=== PATIENT | male | born 1960 | race Caucasian/White ===

== ENCOUNTER 2017-05-15 05:52 | Emergency (ER) | payer OTHER ==
[2017-05-15] MEDS ORDERED: Lidocaine 2% 10 ML* VIAL INJ ONE ×2 (06:16→07:06)
[2017-05-15] MEDS ORDERED: Lidocaine 2% PF * 5 ML VIAL ONE (06:16)
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
[2017-05-15 07:06] VITALS: BP 135/92
== END 2017-05-15 07:05 | disposition home or self-care (01) ==
LOC: ED 05:52
DX: S61.411A Laceration without foreign body of right hand, initial encounter (principal); W26.9XXA Contact with unspecified sharp object(s), initial encounter; Y93.9 Activity, unspecified; Y92.9 Unspecified place or not applicable; Y99.8 Other external cause status; Z87.891 Personal history of nicotine dependence
CPT/HCPCS: 12002; 99282; J2001

== ENCOUNTER 2019-10-27 13:56 | Emergency (ER) | payer OTHER ==
[2019-10-27 14:31] VITALS: BP 148/82
[2019-10-27] MEDS ORDERED: Rabies Immune Globulin/PF 1ML* 1 ML/300 UNITS VIAL IM ONE (15:07)
[2019-10-27] MEDS ORDERED: Rabies VIRUS VACCINE (RabAvert)* 2.5 UNITS VIAL IM ONE (15:07)
--- NOTE | 2019-10-27 15:32 | UC ---
UC General HPI - HPI Summary HPI Summary: 59-year-old male comes in with a chief complaint of need for rabies immunization after exposure to a rabid raccoon. Yesterday morning while in his driveway at his home he was attacked by a raccoon which bit his right posterior pack leg and sock. No evidence of any skin wound or break in the skin. Patient reports is up-to-date with his tetanus. Patient feels well. - History of Current Complaint Chief Complaint: UCBiteInjury Stated Complaint: RABIES EXPOSURE Time Seen by Provider: 10/27/19 15:24 Pain Intensity: 2 - Allergy/Home Medications Allergies/Adverse Reactions: Allergies Allergy/AdvReac Type Severity Reaction Status Date / Time mesalamine Allergy Unknown Verified 10/27/19 14:32 Reaction Details Sulfa (Sulfonamide Allergy Muscle Ache Verified 10/27/19 14:32 Antibiotics) PMH/Surg Hx/FS Hx/Imm Hx Previously Healthy: Yes - ULCERATIVE COLITIS GI/ History: Gastroesophageal Reflux - Surgical History Surgical History: Yes Surgery Procedure, Year, and Place: COLON RESECTION FROM ULCERATIVE CHOLITIS - 09/23/14 [facility]; RT SHOULDER,LT HAND SURGERY X2, LT HAND RING FINGER REATTACHED, DEVIATED SEPTUM, - Family History Known Family History: Positive: Respiratory Disease - Asthma (mother) - Social History Alcohol Use: Daily Alcohol Amount: 2 DRINKS A WEEK Substance Use Type: None Smoking Status (MU): Former Smoker Type: Cigarettes Amount Used/How Often: 1 PPD Length of Time of Smoking/Using Tobacco: 3O YRS Have You Smoked in the Last Year: No When Did the Patient Quit Smoking/Using Tobacco: 3 yrs ago Review of Systems All Other Systems Reviewed And Are Negative: Yes Constitutional: Positive: Negative Skin: Positive: Negative Eyes: Positive: Negative ENT: Positive: Negative Respiratory: Positive: Negative Cardiovascular: Positive: Negative Gastrointestinal: Positive: Negative Motor: Positive: Negative Neurovascular: Positive: Negative Musculoskeletal: Positive: Negative Neurological: Positive: Negative Psychological: Positive: Negative Is Patient Immunocompromised?: No Physical Exam Triage Information Reviewed: Yes Appearance: Well-Appearing, No Pain Distress, Well-Nourished Vital Signs: Initial Vital Signs Temp 99.1 F 10/27/19 14:25 Pulse 82 10/27/19 14:25 Resp 20 10/27/19 14:25 BP 148/82 10/27/19 14:25 Pulse Ox 98 10/27/19 14:25 Vital Signs Reviewed: Yes Eye Exam: Normal Eyes: Positive: Conjunctiva Clear Neck: Positive: Supple Respiratory: Positive: No respiratory distress Musculoskeletal: Positive: Strength Intact, ROM Intact Neurological: Positive: Alert, Muscle Tone Normal Psychological: Positive: Age Appropriate Behavior Skin Exam: Normal - Right posterior leg is no evidence of any skin break. On the anterior like there are a couple of healing areas that patient reports he injured several days ago and was not from the [place]. Course/Dx - Course Course Of Treatment: Patient received his first rabies vaccination here and also rig 7.2 mL's. No evidence of any skin break from the attack. Patient will follow-up with [facility]. - Diagnoses Provider Diagnosis: Need for post exposure prophylaxis for rabies Discharge ED - Sign-Out/Discharge Documenting (check all that apply): Patient Departure All imaging exams completed and their final reports reviewed: No Studies - Discharge Plan Condition: Stable Disposition: HOME Patient Education Materials: Rabies Vaccine (By injection), Rabies Immune Globulin (By injection), Rabies (ED) Referrals: Tiom Campos MD [Primary Care Provider] - Additional Instructions: FOLLOW UP WITH [facility], . YOU WERE GIVEN THE FIRST RABIES VACCINE TODAY. YOU NEED TO CONTINUE THE SERIES WITH THE HEALTH DEPARTMENT. YOU WERE ALSO GIVEN RABIES IMMUNE GLOBULIN TODAY. FOLLOW UP WITH YOUR DOCTOR IF NEEDED. GET REEVALUATED SOONER WITH ANY QUESTIONS OR CONCERNS. - Billing Disposition and Condition Condition: STABLE Disposition: Home
== END 2019-10-27 16:00 | disposition home or self-care (01) ==
LOC: UCEAST 13:56
DX: Z20.3 Contact with and (suspected) exposure to rabies (principal); Z23 Encounter for immunization; Z87.891 Personal history of nicotine dependence; Z88.2 Allergy status to sulfonamides; Z88.8 Allergy status to other drugs, medicaments and biological substances
CPT/HCPCS: 90375; 90471; 90675; 96372; 99211; G0463

== ENCOUNTER 2024-03-28 16:55 | Inpatient (IN) ==
[2024-03-28] MEDS: Lactated Ringers 1000 ml BAG 1,000 ML IV ONE (18:11)
[2024-03-28 18:34] LABS: ABS Basophils 0.1 10^3/uL (0.0-0.1); ABS Eosinophils 0.3 10^3/uL (0.0-0.5); ABS Lymphocytes 1.4 10^3/uL (1.0-4.8); ABS Monocytes 0.7 10^3/uL (0.0-1.1); ABS Neutrophils 6.9 10^3/uL (1.5-7.6); ABS Nucleated RBC 0.01 10^3/ul; Eosinophil % 2.9 %; Hematocrit 39.1 % (38-53); Hemoglobin 13.1 g/dL (13.2-16.3); Lymphocyte % 15.1 %; Mean Corpuscular Hemoglobin 29.2 pg (27-33); Mean Corpuscular Hgb Conc 33.5 g/dL (31-36); Mean Corpuscular Volume 87.1 fL (80-97); Mean Platelet Volume 7.1 fL (7.5-11.2); Nucleated Red Blood Cells % 0.1 %/100WBC (0.0-0.8); Platelet Count 214 10^3/uL (150-450); Red Blood Count 4.48 10^6/uL (4.06-5.63); Red Cell Distribution Width 12.8 % (12-17); White Blood Count 9.4 10^3/uL (3.6-10.2)
[2024-03-28 18:43] LABS: Activated Partial Thrombo Time 28.6 seconds (26.0-38.0); INR 1.27 (0.83-1.13)
[2024-03-28 19:20] LABS: Albumin 4.1 g/dL (3.2-5.2); Albumin/Globulin Ratio 1.4 (1-3); Calcium 9.3 mg/dL (8.6-10.3); Creatinine, Serum 0.98 mg/dL (0.67-1.17); Direct Bilirubin 0.1 mg/dL (0.03-0.18); HDL Cholesterol 27.9 mg/dL; Indirect Bilirubin 0.4 mg/dL (0.3-1.0); Potassium 3.6 mmol/L (3.5-5.0); Total Bilirubin 0.5 mg/dL (0.2-1.0); Total Protein 7.1 g/dL (6.4-8.9); eGFR CKD-EPI 87.7 (>60)
[2024-03-28] MEDS: Heparin 5000 UNITS/ML 1 mL VIAL SUBCUT SCH (22:35)
[2024-03-28] MEDS: Lactated Ringers 1000 ml BAG 1,000 ML IV SCH (22:38)
[2024-03-28] MEDS: Sulfur Hexaflouride MICROSPHR 25 MG VIAL IV ONE (23:49)
[2024-03-29 08:07] LABS: HDL Cholesterol 24.9 mg/dL
[2024-03-29] MEDS: Calcium Carb (TUMS) 500 mg CHEW TAB PO ONE (11:49)
[2024-03-30] MEDS: Lactated Ringers 1000 ml BAG 1,000 ML IV ONE (05:27)
[2024-03-30] MEDS: Pantoprazole VIAL 40 MG VIAL IV ONE (05:41)
[2024-03-30] MEDS: Pantoprazole VIAL 40 MG VIAL IV SCH (05:44)
[2024-03-30] MEDS: Pantoprazole 80 mg in NS BAG 80 MG/250 ML BAG IV SCH (06:23)
[2024-03-30 06:46] LABS: INR 1.27 (0.83-1.13)
[2024-03-30 07:02] LABS: ABS Lymphocytes 0.9 10^3/uL (1.0-4.8); ABS Monocytes 0.8 10^3/uL (0.0-1.1); ABS Neutrophils 9.7 10^3/uL (1.5-7.6); ABS Nucleated RBC 0.01 10^3/ul; Eosinophil % 0.2 %; Hematocrit 38.5 % (38-53); Hemoglobin 12.9 g/dL (13.2-16.3); Lymphocyte % 7.5 %; Mean Corpuscular Hemoglobin 29.2 pg (27-33); Mean Corpuscular Hgb Conc 33.6 g/dL (31-36); Mean Corpuscular Volume 86.8 fL (80-97); Mean Platelet Volume 7.4 fL (7.5-11.2); Nucleated Red Blood Cells % 0.1 %/100WBC (0.0-0.8); Platelet Count 236 10^3/uL (150-450); Red Blood Count 4.43 10^6/uL (4.06-5.63); Red Cell Distribution Width 13.1 % (12-17); White Blood Count 11.4 10^3/uL (3.6-10.2)
[2024-03-30 07:26] LABS: Albumin 3.9 g/dL (3.2-5.2); Albumin/Globulin Ratio 1.3 (1-3); Calcium 9.8 mg/dL (8.6-10.3); Globulin 2.9 g/dL (2-4); Potassium 4.2 mmol/L (3.5-5.0); Total Protein 6.8 g/dL (6.4-8.9); eGFR CKD-EPI 85.6 (>60)
[2024-03-30] MEDS ORDERED: Sulfur Hexaflouride MICROSPHR 25 MG VIAL ONE (14:19)
[2024-03-31] MEDS ORDERED: Propofol 10 MG/ML 20 ML BTL ONE ×2 (15:16→15:32)
[2024-03-31] MEDS: Heparin 5000 UNITS/ML 1 mL VIAL SUBCUT SCH (23:10)
[2024-04-01 05:53] LABS: Hematocrit 31.6 % (38-53); Hemoglobin 10.9 g/dL (13.2-16.3); Mean Corpuscular Hemoglobin 29.8 pg (27-33); Mean Corpuscular Hgb Conc 34.5 g/dL (31-36); Mean Corpuscular Volume 86.5 fL (80-97); Mean Platelet Volume 7.2 fL (7.5-11.2); Platelet Count 186 10^3/uL (150-450); Red Blood Count 3.65 10^6/uL (4.06-5.63); Red Cell Distribution Width 13.5 % (12-17)
[2024-04-01] MEDS: Pantoprazole 80 mg in NS BAG 80 MG/250 ML BAG IV SCH (06:36)
[2024-04-01 07:00] LABS: Calcium 8.7 mg/dL (8.6-10.3); Potassium 3.9 mmol/L (3.5-5.0); eGFR CKD-EPI 85.6 (>60)
[2024-04-01] MEDS: Aspirin EC 81 mg TAB.EC (enteric coated) PO SCH (09:56)
[2024-04-01] MEDS ORDERED: Midazolam 5 mg/5 ml VIAL 1 mg/ml 5 ml VIAL (5 mg) ONE (14:15)
[2024-04-01] MEDS ORDERED: fentaNYL 100 mcg/2 ml 50 MCG/ML VIAL ONE (14:15)
[2024-04-01] MEDS ORDERED: Flumazenil 0.5 mg/5 ml 0.1 MG/ML 5 ml VIAL ONE (14:15)
[2024-04-01] MEDS ORDERED: Naloxone 0.4 mg VIAL 0.4 mg/ml 1 ml VIAL ONE (14:15)
[2024-04-01] MEDS: Pantoprazole VIAL 40 MG VIAL IV SCH (21:04)
[2024-04-02 06:03] LABS: Hematocrit 33.2 % (38-53); Hemoglobin 11.2 g/dL (13.2-16.3); Mean Corpuscular Hemoglobin 29.2 pg (27-33); Mean Corpuscular Hgb Conc 33.8 g/dL (31-36); Mean Corpuscular Volume 86.6 fL (80-97); Mean Platelet Volume 7.7 fL (7.5-11.2); Platelet Count 214 10^3/uL (150-450); Red Blood Count 3.84 10^6/uL (4.06-5.63); Red Cell Distribution Width 13.4 % (12-17)
[2024-04-02 06:28] LABS: Creatinine, Serum 1.26 mg/dL (0.67-1.17); eGFR CKD-EPI 64.9 (>60)
[2024-04-02] MEDS: fentaNYL 100 mcg/2 ml 50 MCG/ML VIAL ONE (10:13)
[2024-04-02] MEDS: Heparin 2 UNITS/ML 1000 mls 1,000 ML IV ONE (10:14)
[2024-04-02 11:33] LABS: DRVVT Screen Ratio 0.99 ratio (<1.20); LAC APTT 24 sec (25 - 37); LAC INR 1.3 (0.9-1.1); LAC PT Mix 1:1 12.1 sec (9.4 - 12.5); Prothrombin Time(LAC) 14.6 sec (9.4 - 12.5); Thrombin Time (Bovine), P 20.8 sec
[2024-04-02] MEDS: Iohexol 350 (CONTRAST) 500 ML MDV IV ONE (16:29)
[2024-04-02] MEDS ORDERED: Heparin 5000 UNITS/ML 1 mL VIAL IV SCH (17:00)
[2024-04-02] MEDS: Heparin DRIP 25,000 UNITS BAG 25,000 UNITS/250 ML BAG IV SCH (17:49)
[2024-04-03 06:27] LABS: Hematocrit 31.6 % (38-53); Hemoglobin 10.8 g/dL (13.2-16.3); Mean Corpuscular Hemoglobin 29.5 pg (27-33); Mean Corpuscular Hgb Conc 34.2 g/dL (31-36); Mean Corpuscular Volume 86.4 fL (80-97); Mean Platelet Volume 7.4 fL (7.5-11.2); Platelet Count 234 10^3/uL (150-450); Red Blood Count 3.66 10^6/uL (4.06-5.63); Red Cell Distribution Width 13.9 % (12-17); White Blood Count 7.9 10^3/uL (3.6-10.2)
[2024-04-03 08:11] LABS: Calcium 8.9 mg/dL (8.6-10.3); Creatinine, Serum 1.49 mg/dL (0.67-1.17); Magnesium 2.2 mg/dL (1.9-2.7); eGFR CKD-EPI 53.1 (>60)
[2024-04-03 09:47] LABS: Factor V Leiden Mutation Negative (Negative)
[2024-04-03] MEDS: Lactated Ringers 1000 ml BAG 1,000 ML IV SCH (11:34)
[2024-04-03] MEDS ORDERED: Enoxaparin 100 MG/ML SYR SUBCUT SCH (15:30)
[2024-04-03] MEDS: Enoxaparin 100 MG/ML SYR SUBCUT SCH (15:49)
[2024-04-04 06:52] LABS: Hematocrit 30.9 % (38-53); Hemoglobin 10.5 g/dL (13.2-16.3); Mean Corpuscular Hemoglobin 29.2 pg (27-33); Mean Corpuscular Volume 85.9 fL (80-97); Mean Platelet Volume 7.6 fL (7.5-11.2); Platelet Count 263 10^3/uL (150-450); Red Cell Distribution Width 13.5 % (12-17); White Blood Count 8.9 10^3/uL (3.6-10.2)
[2024-04-04 07:20] LABS: Creatinine, Serum 1.18 mg/dL (0.67-1.17); Potassium 4.2 mmol/L (3.5-5.0); eGFR CKD-EPI 70.2 (>60)
[2024-04-05 09:37] VITALS: BP 120/81
== END 2024-04-05 14:57 | DRG 64 ==
LOC: ED 16:55 → EDHOLD 19:45 → SUATTDRO 19:45 → MEDTELE 20:46
PROVIDERS: ADMIT Internal Medicine; ATTEND Hospitalist
PROC: O.GIEGD (2024-03-31 14:05)

== ENCOUNTER 2024-04-03 07:08 | Inpatient (IN) ==
[2024-04-05] MEDS: Enoxaparin 100 MG/ML SYR SUBCUT SCH (18:51)
[2024-04-06 07:07] LABS: ABS Eosinophils 0.2 10^3/uL (0.0-0.5); ABS Lymphocytes 1.1 10^3/uL (1.0-4.8); ABS Monocytes 1.5 10^3/uL (0.0-1.1); ABS Neutrophils 8.6 10^3/uL (1.5-7.6); Eosinophil % 1.4 %; Hemoglobin 10.7 g/dL (13.2-16.3); Lymphocyte % 9.8 %; Mean Corpuscular Hemoglobin 28.2 pg (27-33); Mean Corpuscular Hgb Conc 32.5 g/dL (31-36); Mean Corpuscular Volume 86.9 fL (80-97); Mean Platelet Volume 7.6 fL (7.5-11.2); Platelet Count 268 10^3/uL (150-450); Red Cell Distribution Width 14.1 % (12-17); White Blood Count 11.4 10^3/uL (3.6-10.2)
[2024-04-06 07:56] LABS: Albumin 3.1 g/dL (3.2-5.2); Calcium 9.4 mg/dL (8.6-10.3); Creatinine, Serum 1.07 mg/dL (0.67-1.17); Globulin 3.1 g/dL (2-4); Potassium 4.5 mmol/L (3.5-5.0); Total Bilirubin 1.2 mg/dL (0.2-1.0); Total Protein 6.2 g/dL (6.4-8.9)
[2024-04-06] MEDS: Lidocaine PATCH 5% PATCH TRANSDERM ONE (14:08)
[2024-04-06 19:00] LABS: Hematocrit 33.9 % (38-53); Hemoglobin 11.1 g/dL (13.2-16.3); Mean Corpuscular Hgb Conc 32.6 g/dL (31-36); Mean Corpuscular Volume 85.8 fL (80-97); Mean Platelet Volume 7.5 fL (7.5-11.2); Platelet Count 337 10^3/uL (150-450); Red Blood Count 3.95 10^6/uL (4.06-5.63); Red Cell Distribution Width 14.2 % (12-17); White Blood Count 14.9 10^3/uL (3.6-10.2)
[2024-04-06 19:33] LABS: Urine Appearance Clear; Urine Bilirubin 1+ (Negative); Urine Blood Negative (Negative); Urine Color Yellow; Urine Glucose Negative (Negative); Urine Ketones Negative (Negative); Urine Nitrite Negative (Negative); Urine Protein Trace (Negative); Urine Urobilinogen 2+ (Negative); Urine pH 5.5 (5.0-8.0)
[2024-04-06 19:40] LABS: ABS Basophils 0.1 10^3/uL (0.0-0.1); ABS Eosinophils 0.1 10^3/uL (0.0-0.5); ABS Lymphocytes 1.2 10^3/uL (1.0-4.8); ABS Neutrophils 11.6 10^3/uL (1.5-7.6); ABS Nucleated RBC 0.01 10^3/ul; Eosinophil % 0.6 %; Lymphocyte % 8.3 %; RBC Morphology Normal (Normal)
[2024-04-06 19:53] LABS: Albumin 3.3 g/dL (3.2-5.2); Albumin/Globulin Ratio 1.1 (1-3); Calcium 9.7 mg/dL (8.6-10.3); Creatinine, Serum 2.06 mg/dL (0.67-1.17); Globulin 3.1 g/dL (2-4); Potassium 4.3 mmol/L (3.5-5.0); Total Bilirubin 0.9 mg/dL (0.2-1.0); Total Protein 6.4 g/dL (6.4-8.9)
[2024-04-06] MEDS: Lactated Ringers 1000 ml BAG 1,000 ML IV ONE ×2 (19:57→21:15)
[2024-04-06] MEDS ORDERED: D5NS 0.9% 1000 ml BAG 1,000 ML IV SCH (20:00)
[2024-04-06] MEDS: Piperacillin/Tazobac 3.375 BAG 3.375 GM/100 ML BAG IV ONE (22:19)
[2024-04-06 22:30] LABS: Creatinine, Serum 2.16 mg/dL (0.67-1.17); Potassium 4.1 mmol/L (3.5-5.0)
[2024-04-07] MEDS: Lactated Ringers 1000 ml BAG 1,000 ML IV SCH (03:35)
[2024-04-07 06:39] LABS: Mean Corpuscular Hemoglobin 28.9 pg (27-33); Mean Corpuscular Hgb Conc 33.5 g/dL (31-36); Mean Corpuscular Volume 86.2 fL (80-97); Mean Platelet Volume 7.3 fL (7.5-11.2); Platelet Count 270 10^3/uL (150-450); Red Blood Count 3.48 10^6/uL (4.06-5.63); Red Cell Distribution Width 13.7 % (12-17); White Blood Count 12.1 10^3/uL (3.6-10.2)
[2024-04-07 07:11] LABS: Calcium 9.1 mg/dL (8.6-10.3); Creatinine, Serum 1.47 mg/dL (0.67-1.17); eGFR CKD-EPI 53.9 (>60)
[2024-04-07] MEDS: Lidocaine PATCH 5% PATCH TRANSDERM SCH (07:28)
[2024-04-07 08:19] LABS: ABS Basophils 0.1 10^3/uL (0.0-0.1); ABS Eosinophils 0.2 10^3/uL (0.0-0.5); ABS Lymphocytes 1.1 10^3/uL (1.0-4.8); ABS Monocytes 1.3 10^3/uL (0.0-1.1); ABS Neutrophils 9.4 10^3/uL (1.5-7.6); Eosinophil % 1.7 %
[2024-04-07 08:20] LABS: RBC Morphology Normal (Normal)
[2024-04-07] MEDS: cefTRIAXone 1 gm/50 mL D5W 1 GM/50 ML BAG IV ONE (15:08)
[2024-04-08] MEDS: cefTRIAXone 1 gm/50 mL D5W 1 GM/50 ML BAG IV SCH (15:23)
[2024-04-09 06:57] LABS: Hematocrit 30.2 % (38-53); Mean Corpuscular Hemoglobin 28.3 pg (27-33); Mean Corpuscular Hgb Conc 33.2 g/dL (31-36); Mean Corpuscular Volume 85.3 fL (80-97); Mean Platelet Volume 7.2 fL (7.5-11.2); Platelet Count 294 10^3/uL (150-450); Red Blood Count 3.54 10^6/uL (4.06-5.63); Red Cell Distribution Width 13.7 % (12-17); White Blood Count 11.9 10^3/uL (3.6-10.2)
[2024-04-09 07:46] LABS: Calcium 9.5 mg/dL (8.6-10.3); Creatinine, Serum 0.76 mg/dL (0.67-1.17); Potassium 4.2 mmol/L (3.5-5.0); eGFR CKD-EPI 102.3 (>60)
[2024-04-09 08:11] LABS: ABS Eosinophils 0.1 10^3/uL (0.0-0.5); ABS Neutrophils 9.8 10^3/uL (1.5-7.6); Eosinophil % 1.1 %; Lymphocyte % 8.1 %
[2024-04-13 08:21] LABS: ABS Eosinophils 0.2 10^3/uL (0.0-0.5); ABS Monocytes 0.9 10^3/uL (0.0-1.1); ABS Neutrophils 9.6 10^3/uL (1.5-7.6); ABS Nucleated RBC 0.01 10^3/ul; Eosinophil % 1.3 %; Hematocrit 31.2 % (38-53); Hemoglobin 10.2 g/dL (13.2-16.3); Lymphocyte % 8.6 %; Mean Corpuscular Hemoglobin 27.7 pg (27-33); Mean Corpuscular Hgb Conc 32.7 g/dL (31-36); Mean Corpuscular Volume 84.9 fL (80-97); Mean Platelet Volume 6.9 fL (7.5-11.2); Platelet Count 313 10^3/uL (150-450); Red Blood Count 3.68 10^6/uL (4.06-5.63); Red Cell Distribution Width 14.6 % (12-17); White Blood Count 11.7 10^3/uL (3.6-10.2)
[2024-04-13 08:44] LABS: Albumin 2.9 g/dL (3.2-5.2); Calcium 9.8 mg/dL (8.6-10.3); Creatinine, Serum 0.77 mg/dL (0.67-1.17); Globulin 2.9 g/dL (2-4); Potassium 4.3 mmol/L (3.5-5.0); Total Bilirubin 0.6 mg/dL (0.2-1.0); Total Protein 5.8 g/dL (6.4-8.9); eGFR CKD-EPI 101.9 (>60)
[2024-04-16 18:12] LABS: ABS Basophils 0.1 10^3/uL (0.0-0.1); ABS Eosinophils 0.1 10^3/uL (0.0-0.5); ABS Lymphocytes 1.1 10^3/uL (1.0-4.8); ABS Monocytes 0.9 10^3/uL (0.0-1.1); ABS Neutrophils 10.8 10^3/uL (1.5-7.6); ABS Nucleated RBC 0.01 10^3/ul; Eosinophil % 0.5 %; Hematocrit 32.3 % (38-53); Hemoglobin 10.6 g/dL (13.2-16.3); Lymphocyte % 8.5 %; Mean Corpuscular Hemoglobin 27.7 pg (27-33); Mean Corpuscular Hgb Conc 32.7 g/dL (31-36); Mean Corpuscular Volume 84.8 fL (80-97); Mean Platelet Volume 6.9 fL (7.5-11.2); Nucleated Red Blood Cells % 0.1 %/100WBC (0.0-0.8); Platelet Count 291 10^3/uL (150-450); Red Blood Count 3.81 10^6/uL (4.06-5.63); Red Cell Distribution Width 14.8 % (12-17); White Blood Count 12.9 10^3/uL (3.6-10.2)
[2024-04-16 18:37] LABS: Albumin 3.4 g/dL (3.2-5.2); Albumin/Globulin Ratio 1.1 (1-3); Calcium 11.1 mg/dL (8.6-10.3); Creatinine, Serum 1.01 mg/dL (0.67-1.17); Globulin 3.2 g/dL (2-4); Potassium 4.3 mmol/L (3.5-5.0); Total Bilirubin 0.8 mg/dL (0.2-1.0); Total Protein 6.6 g/dL (6.4-8.9); eGFR CKD-EPI 84.6 (>60)
[2024-04-17 00:08] LABS: Urine Appearance Clear; Urine Bilirubin Negative (Negative); Urine Blood Negative (Negative); Urine Color Light-Yellow; Urine Glucose Negative (Negative); Urine Ketones Negative (Negative); Urine Nitrite Negative (Negative); Urine Protein Negative (Negative); Urine Specific Gravity 1.017 (1.002-1.030); Urine Urobilinogen Negative (Negative); Urine pH 5.5 (5.0-8.0)
[2024-04-17 09:02] LABS: ABS Eosinophils 0.1 10^3/uL (0.0-0.5); ABS Lymphocytes 0.9 10^3/uL (1.0-4.8); ABS Monocytes 0.8 10^3/uL (0.0-1.1); ABS Nucleated RBC 0.01 10^3/ul; Eosinophil % 0.6 %; Hematocrit 35.7 % (38-53); Hemoglobin 11.2 g/dL (13.2-16.3); Lymphocyte % 8.7 %; Mean Corpuscular Hemoglobin 27.5 pg (27-33); Mean Corpuscular Hgb Conc 31.4 g/dL (31-36); Mean Corpuscular Volume 87.8 fL (80-97); Mean Platelet Volume 7.2 fL (7.5-11.2); Nucleated Red Blood Cells % 0.1 %/100WBC (0.0-0.8); Platelet Count 267 10^3/uL (150-450); Red Blood Count 4.06 10^6/uL (4.06-5.63); Red Cell Distribution Width 14.9 % (12-17); White Blood Count 10.9 10^3/uL (3.6-10.2)
[2024-04-17 09:30] LABS: Calcium (PTH Intact) 10.1 mg/dL (8.6-10.3)
[2024-04-18 04:14] LABS: Urine Appearance Clear; Urine Bilirubin Negative (Negative); Urine Blood Negative (Negative); Urine Color Light-Yellow; Urine Glucose Negative (Negative); Urine Ketones Negative (Negative); Urine Nitrite Negative (Negative); Urine Protein Negative (Negative); Urine Specific Gravity 1.011 (1.002-1.030); Urine Urobilinogen Negative (Negative); Urine pH 5.5 (5.0-8.0)
[2024-04-20 07:27] LABS: ABS Basophils 0.1 10^3/uL (0.0-0.1); ABS Eosinophils 0.1 10^3/uL (0.0-0.5); ABS Lymphocytes 0.9 10^3/uL (1.0-4.8); ABS Monocytes 0.7 10^3/uL (0.0-1.1); ABS Neutrophils 6.2 10^3/uL (1.5-7.6); Hematocrit 30.7 % (38-53); Hemoglobin 10.2 g/dL (13.2-16.3); Lymphocyte % 10.9 %; Mean Corpuscular Hgb Conc 33.4 g/dL (31-36); Mean Corpuscular Volume 83.9 fL (80-97); Mean Platelet Volume 7.4 fL (7.5-11.2); Nucleated Red Blood Cells % 0.1 %/100WBC (0.0-0.8); Platelet Count 248 10^3/uL (150-450); Red Blood Count 3.66 10^6/uL (4.06-5.63); Red Cell Distribution Width 14.8 % (12-17); White Blood Count 7.9 10^3/uL (3.6-10.2)
[2024-04-20 07:44] LABS: Calcium 10.1 mg/dL (8.6-10.3); Creatinine, Serum 0.88 mg/dL (0.67-1.17); Potassium 4.1 mmol/L (3.5-5.0); Total Bilirubin 0.8 mg/dL (0.2-1.0); eGFR CKD-EPI 97.8 (>60)
[2024-04-27 06:51] LABS: ABS Basophils 0.1 10^3/uL (0.0-0.1); ABS Eosinophils 0.1 10^3/uL (0.0-0.5); ABS Lymphocytes 0.9 10^3/uL (1.0-4.8); ABS Monocytes 0.9 10^3/uL (0.0-1.1); ABS Neutrophils 6.2 10^3/uL (1.5-7.6); ABS Nucleated RBC 0.01 10^3/ul; Hematocrit 29.4 % (38-53); Hemoglobin 9.8 g/dL (13.2-16.3); Lymphocyte % 11.5 %; Mean Corpuscular Hemoglobin 27.2 pg (27-33); Mean Corpuscular Hgb Conc 33.4 g/dL (31-36); Mean Corpuscular Volume 81.5 fL (80-97); Nucleated Red Blood Cells % 0.1 %/100WBC (0.0-0.8); Platelet Count 255 10^3/uL (150-450); Red Cell Distribution Width 15.3 % (12-17); White Blood Count 8.1 10^3/uL (3.6-10.2)
[2024-04-27 07:36] LABS: Calcium 10.4 mg/dL (8.6-10.3); Creatinine, Serum 0.83 mg/dL (0.67-1.17); Globulin 2.9 g/dL (2-4); Potassium 3.9 mmol/L (3.5-5.0); Total Bilirubin 0.8 mg/dL (0.2-1.0); Total Protein 5.9 g/dL (6.4-8.9); eGFR CKD-EPI 99.6 (>60)
[2024-05-02 09:07] LABS: ABS Lymphocytes 0.7 10^3/uL (1.0-4.8); ABS Monocytes 0.7 10^3/uL (0.0-1.1); ABS Neutrophils 8.1 10^3/uL (1.5-7.6); Eosinophil % 0.4 %; Hematocrit 32.5 % (38-53); Hemoglobin 10.5 g/dL (13.2-16.3); Lymphocyte % 7.4 %; Mean Corpuscular Hemoglobin 26.4 pg (27-33); Mean Corpuscular Hgb Conc 32.3 g/dL (31-36); Mean Corpuscular Volume 81.6 fL (80-97); Mean Platelet Volume 7.2 fL (7.5-11.2); Platelet Count 295 10^3/uL (150-450); Red Blood Count 3.98 10^6/uL (4.06-5.63); Red Cell Distribution Width 15.9 % (12-17); White Blood Count 9.6 10^3/uL (3.6-10.2)
[2024-05-03 15:07] VITALS: BP 102/60
== END 2024-05-03 15:21 | disposition home or self-care (01) | DRG 56 ==
LOC: PMRU 04-05 14:58 → OBSVTOIN 04-05 14:58 → INTOOBSV 04-05 14:58
PROVIDERS: ADMIT Physical Medicine & Rehabilitation; ATTEND Physical Medicine & Rehabilitation

== ENCOUNTER 2024-05-03 15:45 | Inpatient (IN) ==
[2024-05-04 08:45] LABS: ABS Basophils 0.1 10^3/uL (0.0-0.1); ABS Lymphocytes 0.9 10^3/uL (1.0-4.8); ABS Neutrophils 9.3 10^3/uL (1.5-7.6); Eosinophil % 0.1 %; Hematocrit 31.5 % (38-53); Hemoglobin 10.3 g/dL (13.2-16.3); Mean Corpuscular Hemoglobin 26.2 pg (27-33); Mean Corpuscular Hgb Conc 32.7 g/dL (31-36); Mean Platelet Volume 7.2 fL (7.5-11.2); Platelet Count 235 10^3/uL (150-450); Red Blood Count 3.93 10^6/uL (4.06-5.63); Red Cell Distribution Width 15.8 % (12-17); White Blood Count 11.3 10^3/uL (3.6-10.2)
[2024-05-04 08:58] LABS: INR 1.39 (0.83-1.13)
[2024-05-04 09:40] LABS: Albumin 3.1 g/dL (3.2-5.2); Albumin/Globulin Ratio 0.9 (1-3); Calcium 11.7 mg/dL (8.6-10.3); Creatinine, Serum 0.96 mg/dL (0.67-1.17); Globulin 3.5 g/dL (2-4); Magnesium 1.5 mg/dL (1.9-2.7); Potassium 4.4 mmol/L (3.5-5.0); Total Bilirubin 0.9 mg/dL (0.2-1.0); Total Protein 6.6 g/dL (6.4-8.9); eGFR CKD-EPI 89.9 (>60)
[2024-05-04] MEDS: Multivitamins/Minerals TAB PO SCH (09:52)
[2024-05-04] MEDS: Lidocaine PATCH 5% PATCH TRANSDERM SCH (09:52)
[2024-05-04] MEDS: Magnesium Sulfate 2 gm BAG 2 GM/50 ML BAG IVPB ONE (11:20)
[2024-05-04] MEDS: Magnesium Sulfate IV 1GM/100ML 1 GM/100 ML BAG IV ONE (12:35)
[2024-05-04] MEDS: Enoxaparin 100 MG/ML SYR SUBCUT ONE (15:10)
[2024-05-05 06:26] LABS: ABS Basophils 0.1 10^3/uL (0.0-0.1); ABS Lymphocytes 1.1 10^3/uL (1.0-4.8); ABS Monocytes 1.1 10^3/uL (0.0-1.1); ABS Neutrophils 10.1 10^3/uL (1.5-7.6); ABS Nucleated RBC 0.01 10^3/ul; Eosinophil % 0.2 %; Hematocrit 31.2 % (38-53); Hemoglobin 10.4 g/dL (13.2-16.3); Lymphocyte % 8.6 %; Mean Corpuscular Hemoglobin 26.5 pg (27-33); Mean Corpuscular Hgb Conc 33.1 g/dL (31-36); Mean Corpuscular Volume 79.8 fL (80-97); Mean Platelet Volume 7.1 fL (7.5-11.2); Nucleated Red Blood Cells % 0.1 %/100WBC (0.0-0.8); Platelet Count 219 10^3/uL (150-450); Red Blood Count 3.91 10^6/uL (4.06-5.63); Red Cell Distribution Width 15.8 % (12-17); White Blood Count 12.4 10^3/uL (3.6-10.2)
[2024-05-05 07:34] LABS: Calcium 11.6 mg/dL (8.6-10.3); Creatinine, Serum 1.07 mg/dL (0.67-1.17); Magnesium 1.9 mg/dL (1.9-2.7); Potassium 4.4 mmol/L (3.5-5.0)
[2024-05-05] MEDS: fentaNYL 250 mcg/5 ml 50 MCG/ML 5 ml VIAL (250 MCG) ONE (19:42)
[2024-05-05] MEDS: Ondansetron 4 mg VIAL 2 MG/ML 2 ml VIAL ONE (19:43)
[2024-05-06 06:28] LABS: ABS Basophils 0.1 10^3/uL (0.0-0.1); ABS Lymphocytes 1.2 10^3/uL (1.0-4.8); ABS Monocytes 1.4 10^3/uL (0.0-1.1); ABS Neutrophils 12.3 10^3/uL (1.5-7.6); ABS Nucleated RBC 0.03 10^3/ul; Eosinophil % 0.1 %; Hematocrit 31.6 % (38-53); Hemoglobin 10.1 g/dL (13.2-16.3); Lymphocyte % 7.9 %; Mean Corpuscular Hemoglobin 25.3 pg (27-33); Mean Corpuscular Hgb Conc 31.8 g/dL (31-36); Mean Corpuscular Volume 79.4 fL (80-97); Mean Platelet Volume 7.2 fL (7.5-11.2); Nucleated Red Blood Cells % 0.2 %/100WBC (0.0-0.8); Platelet Count 111 10^3/uL (150-450); Red Blood Count 3.98 10^6/uL (4.06-5.63); Red Cell Distribution Width 16.3 % (12-17); White Blood Count 14.9 10^3/uL (3.6-10.2)
[2024-05-06 07:28] LABS: Calcium 12.5 mg/dL (8.6-10.3); Creatinine, Serum 1.74 mg/dL (0.67-1.17); Magnesium 1.9 mg/dL (1.9-2.7); Potassium 4.2 mmol/L (3.5-5.0); eGFR CKD-EPI 44.1 (>60)
[2024-05-06] MEDS: NS 0.9% 1000 ml BAG 1,000 ML IV SCH (09:59)
[2024-05-06] MEDS: Enoxaparin 100 MG/ML SYR SUBCUT SCH (13:46)
[2024-05-07 08:19] LABS: ABS Lymphocytes 1.1 10^3/uL (1.0-4.8); ABS Monocytes 1.1 10^3/uL (0.0-1.1); ABS Neutrophils 12.1 10^3/uL (1.5-7.6); ABS Nucleated RBC 0.01 10^3/ul; Eosinophil % 0.2 %; Hemoglobin 9.5 g/dL (13.2-16.3); Lymphocyte % 7.9 %; Mean Corpuscular Hemoglobin 25.8 pg (27-33); Mean Corpuscular Hgb Conc 32.7 g/dL (31-36); Mean Platelet Volume 7.6 fL (7.5-11.2); Nucleated Red Blood Cells % 0.1 %/100WBC (0.0-0.8); Platelet Count 118 10^3/uL (150-450); Red Blood Count 3.68 10^6/uL (4.06-5.63); Red Cell Distribution Width 16.2 % (12-17); White Blood Count 14.4 10^3/uL (3.6-10.2)
[2024-05-07 08:41] LABS: Calcium 11.7 mg/dL (8.6-10.3); Creatinine, Serum 1.72 mg/dL (0.67-1.17); Magnesium 1.8 mg/dL (1.9-2.7); Potassium 4.2 mmol/L (3.5-5.0); eGFR CKD-EPI 44.7 (>60)
[2024-05-07] MEDS: Magnesium Sulfate 2 gm BAG 2 GM/50 ML BAG IVPB ONE (10:17)
[2024-05-07 15:15] LABS: Ferritin 1028.2 ng/mL (24-336)
[2024-05-07] MEDS: NS 0.9% 1000 ml BAG 1,000 ML IV SCH (15:37)
[2024-05-08] MEDS: Morphine 2 MG/ML SYRINGE IV ONE
[2024-05-08 07:01] LABS: ABS Basophils 0.1 10^3/uL (0.0-0.1); ABS Eosinophils 0.1 10^3/uL (0.0-0.5); ABS Lymphocytes 1.1 10^3/uL (1.0-4.8); ABS Neutrophils 8.4 10^3/uL (1.5-7.6); ABS Nucleated RBC 0.02 10^3/ul; Eosinophil % 1.2 %; Hematocrit 23.5 % (38-53); Hemoglobin 7.7 g/dL (13.2-16.3); Lymphocyte % 10.1 %; Mean Corpuscular Hemoglobin 26.3 pg (27-33); Mean Corpuscular Hgb Conc 32.9 g/dL (31-36); Mean Corpuscular Volume 79.9 fL (80-97); Mean Platelet Volume 7.8 fL (7.5-11.2); Nucleated Red Blood Cells % 0.1 %/100WBC (0.0-0.8); Platelet Count 121 10^3/uL (150-450); Red Blood Count 2.94 10^6/uL (4.06-5.63); Red Cell Distribution Width 16.2 % (12-17); White Blood Count 10.8 10^3/uL (3.6-10.2)
[2024-05-08 08:15] LABS: Calcium 10.8 mg/dL (8.6-10.3); Creatinine, Serum 1.69 mg/dL (0.67-1.17); Magnesium 2.1 mg/dL (1.9-2.7); Potassium 4.1 mmol/L (3.5-5.0); eGFR CKD-EPI 45.6 (>60)
[2024-05-08 17:39] LABS: ABS Eosinophils 0.1 10^3/uL (0.0-0.5); ABS Monocytes 1.2 10^3/uL (0.0-1.1); ABS Neutrophils 10.2 10^3/uL (1.5-7.6); ABS Nucleated RBC 0.01 10^3/ul; Eosinophil % 0.6 %; Hematocrit 24.5 % (38-53); Lymphocyte % 7.7 %; Mean Corpuscular Hemoglobin 25.9 pg (27-33); Mean Corpuscular Hgb Conc 32.5 g/dL (31-36); Mean Corpuscular Volume 79.8 fL (80-97); Mean Platelet Volume 7.6 fL (7.5-11.2); Platelet Count 132 10^3/uL (150-450); Red Blood Count 3.06 10^6/uL (4.06-5.63); Red Cell Distribution Width 16.4 % (12-17); White Blood Count 12.5 10^3/uL (3.6-10.2)
[2024-05-08] MEDS: NS 0.9% 1000 ml BAG 1,000 ML IV SCH (17:45)
[2024-05-09 07:09] LABS: ABS Basophils 0.1 10^3/uL (0.0-0.1); ABS Eosinophils 0.1 10^3/uL (0.0-0.5); ABS Lymphocytes 1.1 10^3/uL (1.0-4.8); ABS Monocytes 1.2 10^3/uL (0.0-1.1); ABS Nucleated RBC 0.01 10^3/ul; Hemoglobin 7.7 g/dL (13.2-16.3); Lymphocyte % 9.6 %; Mean Corpuscular Hemoglobin 25.7 pg (27-33); Mean Corpuscular Hgb Conc 32.2 g/dL (31-36); Mean Corpuscular Volume 79.8 fL (80-97); Mean Platelet Volume 7.2 fL (7.5-11.2); Platelet Count 139 10^3/uL (150-450); Red Blood Count 3.01 10^6/uL (4.06-5.63); Red Cell Distribution Width 16.6 % (12-17); White Blood Count 11.5 10^3/uL (3.6-10.2)
[2024-05-09] MEDS: NS 0.9% 1000 ml BAG 1,000 ML IV SCH (08:57)
[2024-05-09 09:44] LABS: Calcium 11.3 mg/dL (8.6-10.3); Creatinine, Serum 1.23 mg/dL (0.67-1.17); eGFR CKD-EPI 66.8 (>60)
[2024-05-09 15:55] LABS: Albumin 2.7 g/dL (3.2-5.2)
[2024-05-10 07:11] LABS: Hematocrit 24.5 % (38-53); Hemoglobin 7.8 g/dL (13.2-16.3); Mean Corpuscular Hemoglobin 25.7 pg (27-33); Mean Corpuscular Hgb Conc 31.7 g/dL (31-36); Mean Platelet Volume 7.5 fL (7.5-11.2); Platelet Count 121 10^3/uL (150-450); Red Blood Count 3.02 10^6/uL (4.06-5.63); Red Cell Distribution Width 16.3 % (12-17)
[2024-05-10 07:47] LABS: Albumin 2.5 g/dL (3.2-5.2); Albumin/Globulin Ratio 0.9 (1-3); Calcium 10.7 mg/dL (8.6-10.3); Creatinine, Serum 0.9 mg/dL (0.67-1.17); Globulin 2.8 g/dL (2-4); Potassium 3.6 mmol/L (3.5-5.0); Total Bilirubin 1.2 mg/dL (0.2-1.0); Total Protein 5.3 g/dL (6.4-8.9); eGFR CKD-EPI 97.2 (>60)
[2024-05-10] MEDS: Ferric Gluconate IV 250 MG in NS 0.9% 250 ml 200 ML IVPB SCH (08:46)
[2024-05-10 08:56] LABS: ABS Basophils 0.1 10^3/uL (0.0-0.1); ABS Eosinophils 0.1 10^3/uL (0.0-0.5); ABS Lymphocytes 0.9 10^3/uL (1.0-4.8); ABS Monocytes 0.9 10^3/uL (0.0-1.1); Eosinophil % 1.3 %; Lymphocyte % 8.7 %
[2024-05-10] MEDS: NS 0.9% 1000 ml BAG 1,000 ML IV SCH (17:47)
[2024-05-11 08:49] LABS: ABS Eosinophils 0.1 10^3/uL (0.0-0.5); ABS Lymphocytes 0.9 10^3/uL (1.0-4.8); ABS Monocytes 0.9 10^3/uL (0.0-1.1); ABS Neutrophils 8.3 10^3/uL (1.5-7.6); Eosinophil % 1.2 %; Hematocrit 24.9 % (38-53); Hemoglobin 8.2 g/dL (13.2-16.3); Lymphocyte % 8.6 %; Mean Corpuscular Hemoglobin 25.8 pg (27-33); Mean Corpuscular Hgb Conc 32.9 g/dL (31-36); Mean Corpuscular Volume 78.6 fL (80-97); Mean Platelet Volume 7.2 fL (7.5-11.2); Platelet Count 164 10^3/uL (150-450); Red Blood Count 3.17 10^6/uL (4.06-5.63); Red Cell Distribution Width 16.3 % (12-17); White Blood Count 10.2 10^3/uL (3.6-10.2)
[2024-05-11 11:24] LABS: Albumin 2.4 g/dL (3.2-5.2); Albumin/Globulin Ratio 0.9 (1-3); Calcium 10.6 mg/dL (8.6-10.3); Creatinine, Serum 0.76 mg/dL (0.67-1.17); Globulin 2.7 g/dL (2-4); Magnesium 1.4 mg/dL (1.9-2.7); Potassium 3.7 mmol/L (3.5-5.0); Total Protein 5.1 g/dL (6.4-8.9); eGFR CKD-EPI 102.3 (>60)
[2024-05-11] MEDS: Magnesium Sulfate 2 gm BAG 2 GM/50 ML BAG IVPB ONE (20:03)
[2024-05-11] MEDS: NS 0.9% 1000 ml BAG 1,000 ML IV SCH (20:05)
[2024-05-11] MEDS: Magnesium Sulfate IV 1GM/100ML 1 GM/100 ML BAG IV ONE (21:45)
[2024-05-12 06:57] LABS: Hematocrit 24.3 % (38-53); Hemoglobin 7.6 g/dL (13.2-16.3); Mean Corpuscular Hemoglobin 25.2 pg (27-33); Mean Corpuscular Hgb Conc 31.1 g/dL (31-36); Mean Corpuscular Volume 81.1 fL (80-97); Mean Platelet Volume 7.3 fL (7.5-11.2); Platelet Count 94 10^3/uL (150-450); Red Cell Distribution Width 16.9 % (12-17)
[2024-05-12 07:07] LABS: Albumin 2.3 g/dL (3.2-5.2); Albumin/Globulin Ratio 0.9 (1-3); Calcium 11.6 mg/dL (8.6-10.3); Creatinine, Serum 1.6 mg/dL (0.67-1.17); Direct Bilirubin 0.3 mg/dL (0.03-0.18); Globulin 2.7 g/dL (2-4); Indirect Bilirubin 0.8 mg/dL (0.3-1.0); Magnesium 2.2 mg/dL (1.9-2.7); Phosphorus 5.3 mg/dL (2.5-5.0); Potassium 3.9 mmol/L (3.5-5.0); Total Bilirubin 1.1 mg/dL (0.2-1.0); eGFR CKD-EPI 48.7 (>60)
[2024-05-12] MEDS: NS 0.9% 1000 ml BAG 1,000 ML IV SCH ×2 (10:59→21:09)
[2024-05-12 16:09] LABS: Calcium 11.9 mg/dL (8.6-10.3); Creatinine, Serum 1.49 mg/dL (0.67-1.17); eGFR CKD-EPI 53.1 (>60)
[2024-05-12 16:29] LABS: Hematocrit 26.9 % (38-53); Hemoglobin 8.2 g/dL (13.2-16.3); Mean Corpuscular Hemoglobin 24.5 pg (27-33); Mean Corpuscular Hgb Conc 30.6 g/dL (31-36); Mean Corpuscular Volume 80.1 fL (80-97); Mean Platelet Volume 7.1 fL (7.5-11.2); Platelet Count 111 10^3/uL (150-450); Red Blood Count 3.35 10^6/uL (4.06-5.63); Red Cell Distribution Width 16.7 % (12-17); White Blood Count 12.5 10^3/uL (3.6-10.2)
[2024-05-12 17:03] LABS: Calcium 11.9 mg/dL (8.6-10.3); Creatinine, Serum 1.44 mg/dL (0.67-1.17); Magnesium 2.1 mg/dL (1.9-2.7); Phosphorus 4.6 mg/dL (2.5-5.0); eGFR CKD-EPI 55.3 (>60)
[2024-05-12] MEDS ORDERED: PAMIDRONATE IVPB SCH (18:00)
[2024-05-12] MEDS ORDERED: NS 0.9% IVPB SCH (18:00)
[2024-05-12] MEDS: Zoledronic Acid 4 MG in NS 0.9% 100 ml BAG 100 ML IVPB ONE (19:41)
[2024-05-12] MEDS: Morphine 2 MG/ML SYRINGE IV ONE (23:41)
[2024-05-13 08:36] LABS: Hemoglobin 7.1 g/dL (13.2-16.3); Mean Corpuscular Hemoglobin 25.5 pg (27-33); Mean Corpuscular Hgb Conc 32.2 g/dL (31-36); Mean Corpuscular Volume 79.2 fL (80-97); Mean Platelet Volume 7.1 fL (7.5-11.2); Platelet Count 105 10^3/uL (150-450); Red Blood Count 2.78 10^6/uL (4.06-5.63); Red Cell Distribution Width 16.5 % (12-17)
[2024-05-13 09:28] LABS: Calcium 11.7 mg/dL (8.6-10.3); Creatinine, Serum 1.2 mg/dL (0.67-1.17); Potassium 3.8 mmol/L (3.5-5.0); eGFR CKD-EPI 68.8 (>60)
[2024-05-13 09:36] LABS: Albumin 2.3 g/dL (3.2-5.2); Albumin/Globulin Ratio 0.9 (1-3); Globulin 2.6 g/dL (2-4); Magnesium 1.8 mg/dL (1.9-2.7); Phosphorus 4.1 mg/dL (2.5-5.0); Total Protein 4.9 g/dL (6.4-8.9)
[2024-05-13 12:30] LABS: ABS Basophils 0.1 10^3/uL (0.0-0.1); ABS Lymphocytes 0.7 10^3/uL (1.0-4.8); ABS Monocytes 1.1 10^3/uL (0.0-1.1); ABS Neutrophils 11.2 10^3/uL (1.5-7.6); ABS Nucleated RBC 0.01 10^3/ul; Eosinophil % 0.3 %; Nucleated Red Blood Cells % 0.1 %/100WBC (0.0-0.8)
[2024-05-13] MEDS: Calcitonin (Salmon) INJ 200 UNITS/ML 2 ML VIAL (400 units) IM ONE (16:47)
[2024-05-13] MEDS: NS 0.9% 1000 ml BAG 1,000 ML IV SCH (16:52)
[2024-05-13] MEDS: Furosemide 20 mg/2 ml IV VIAL IV SLOW PU ONE (18:23)
[2024-05-13 19:48] LABS: Urine Appearance Clear; Urine Bilirubin Negative (Negative); Urine Blood Negative (Negative); Urine Color Light-Yellow; Urine Glucose Negative (Negative); Urine Ketones Negative (Negative); Urine Nitrite Negative (Negative); Urine Protein Negative (Negative); Urine Specific Gravity 1.011 (1.002-1.030); Urine Urobilinogen Negative (Negative)
[2024-05-13] MEDS: Morphine 2 MG/ML SYRINGE IV PRN (20:00)
[2024-05-13] MEDS: Metoprolol Tartrate 5 mg VIAL 5 ml VIAL (1 mg/ml) IV SCH (20:00)
[2024-05-13] MEDS ORDERED: Lorazepam PYXIS KEY PRN ×2 (22:04→23:50)
[2024-05-13] MEDS: LORazepam 2 mg VIAL 1 ml IV PUSH ONE (22:23)
[2024-05-14] MEDS: LORazepam 2 mg VIAL 1 ml IV PUSH ONE (00:19)
[2024-05-14 06:20] LABS: ABS Basophils 0.1 10^3/uL (0.0-0.1); ABS Lymphocytes 1.2 10^3/uL (1.0-4.8); ABS Monocytes 1.5 10^3/uL (0.0-1.1); ABS Nucleated RBC 0.02 10^3/ul; Eosinophil % 0.2 %; Hematocrit 25.4 % (38-53); Hemoglobin 7.9 g/dL (13.2-16.3); Lymphocyte % 6.6 %; Mean Corpuscular Hemoglobin 25.6 pg (27-33); Mean Corpuscular Hgb Conc 31.1 g/dL (31-36); Mean Corpuscular Volume 82.4 fL (80-97); Mean Platelet Volume 7.6 fL (7.5-11.2); Nucleated Red Blood Cells % 0.1 %/100WBC (0.0-0.8); Platelet Count 115 10^3/uL (150-450); Red Blood Count 3.09 10^6/uL (4.06-5.63); Red Cell Distribution Width 17.2 % (12-17); White Blood Count 17.7 10^3/uL (3.6-10.2)
[2024-05-14 06:46] LABS: Albumin 2.5 g/dL (3.2-5.2); Albumin/Globulin Ratio 0.9 (1-3); Calcium 10.2 mg/dL (8.6-10.3); Creatinine, Serum 1.15 mg/dL (0.67-1.17); Globulin 2.8 g/dL (2-4); Magnesium 1.7 mg/dL (1.9-2.7); Potassium 4.1 mmol/L (3.5-5.0); Total Bilirubin 1.1 mg/dL (0.2-1.0); Total Protein 5.3 g/dL (6.4-8.9); eGFR CKD-EPI 72.4 (>60)
[2024-05-14 07:40] LABS: C Reactive Protein 208.71 mg/L (<8.01)
[2024-05-14] MEDS: Magnesium Sulfate 2 gm BAG 2 GM/50 ML BAG IVPB ONE (10:23)
[2024-05-14] MEDS: cefTRIAXone 1 gm/50 mL D5W 1 GM/50 ML BAG IV SCH (12:54)
[2024-05-14 13:50] VITALS: BP 114/69
[2024-05-14] MEDS: DOXYcycline 100 MG in NS 0.9% 250 ml 250 ML IVPB SCH (14:03)
[2024-05-14] MEDS ORDERED: Ondansetron 4 mg VIAL 2 MG/ML 2 ml VIAL IV PRN (16:19)
[2024-05-14] MEDS ORDERED: Atropine 1% (ORAL/SL) 15 ML BTL SL PRN (16:19)
[2024-05-14] MEDS ORDERED: Morphine ORAL CONCENTRATE 5 MG/0.25 ML ORAL.SYRIN PO PRN (16:19)
[2024-05-14] MEDS: Acetaminophen IV 1 GM/100ML 1,000 MG/100 ML BAG IV SCH (16:34)
[2024-05-14] MEDS: Scopolamine 1 mg/72hr PATCH TRANSDERM SCH (18:16)
[2024-05-14] MEDS: Morphine ORAL CONCENTRATE 5 MG/0.25 ML ORAL.SYRIN PO PRN (19:24)
[2024-05-14] MEDS: Morphine ORAL.SOLN 10 mg 2 mg/ml UDC 5 ml (10 mg) PO PRN (21:09)
[2024-05-15] MEDS ORDERED: Lorazepam PYXIS KEY PRN (15:48)
[2024-05-15] MEDS ORDERED: Morphine 2 MG/ML SYRINGE IV PRN (15:49)
[2024-05-15] MEDS: LORazepam 2 mg VIAL 1 ml IV PUSH PRN (20:03)
[2024-05-16] MEDS: Morphine 2 MG/ML SYRINGE IV PRN (08:44)
[2024-05-16] MEDS: Morphine 2 MG/ML SYRINGE IV ONE (09:41)
[2024-05-16 14:44] LABS: Anaplasma phagocytophilum Negative (Negative); B. miyamotoi PCR, B Negative (Negative); Babesia divergens/MO-1 Negative (Negative); Babesia ducani Negative (Negative); Ehrlichia chaffeensis Negative (Negative); Ehrlichia ewingii/canis Negative (Negative); Ehrlichia muris eauclairensis Negative (Negative)
== END 2024-05-16 11:05 | disposition expired | DRG 477 ==
LOC: MED → SUATTDRO 17:04
PROVIDERS: ADMIT Hospitalist; ATTEND Family Medicine